=== PATIENT | male | born 1955 | race Caucasian/White ===

== ENCOUNTER 2019-08-25 06:56 | Day surgery (SDC) | payer MEDICARE ==
[~2019-08-25] VITALS: Ht 195 cm; Wt 94.3 kg
--- NOTE | 2019-08-25 08:31 | NUR ---
Ambulatory in Day Surgery History, Chart, Medications and Allergies reviewed before start of procedure.Patient confirms NPO status and agrees with scheduled surgery. Patient reports completing Chlorhexadine shower X2 prior to admission to hospital.
--- NOTE | 2019-08-25 12:00 | NUR ---
PATIENT AND SPOUSE PROVIDED DISCHARGE INFO REGARDING FOLLOW UP PLANS, WOUND CARE, MEDICATION INFO, AND REASONS TO RETURN TO THE HOSPITAL. VERBALIZED UNDERSTANDING. NO SIGNS OF ACUTE DISTRESS, NO NEW DISCHARGE NOTED, VITAL SIGNS STABLE. PATIENT TOLERATED PO INTAKE. [facility]IST AGREED TO TAKE PATIENT TO HOME.
== END 2019-08-25 23:03 | disposition home or self-care (01) ==
LOC: ORSCMMR 06:56
PROVIDERS: Podiatrist Foot & Ankle Surgery
PROC: 0SRQ0JZ Replacement of Left Toe Phalangeal Joint with Synthetic Substitute, Open Approach (ICD-10-PCS; principal; 2019-08-25 08:15)
PROC: 0QSP04Z Reposition Left Metatarsal with Internal Fixation Device, Open Approach (ICD-10-PCS; principal; 2019-08-25 08:15)
PROC: 0SQN0ZZ Repair Left Metatarsal-Phalangeal Joint, Open Approach (ICD-10-PCS; principal; 2019-08-25 08:15)
DX: M20.42 Other hammer toe(s) (acquired), left foot (principal); M21.612 Bunion of left foot; S93.145A Subluxation of metatarsophalangeal joint of left lesser toe(s), initial encounter
CPT/HCPCS: C1713; C1769; J0690; J1100; J1885; J2250; J2405; J2704; J3010; J7120

== ENCOUNTER 2021-01-13 07:50 | Day surgery (SDC) | payer MEDICARE ==
[~2021-01-13] VITALS: Ht 193 cm; Wt 94.6 kg
== END 2021-01-13 09:59 | disposition home or self-care (01) ==
LOC: ORSCSDS 07:50
PROVIDERS: Internal Medicine Gastroenterology
PROC: 0DBH8ZX Excision of Cecum, Via Natural or Artificial Opening Endoscopic, Diagnostic (ICD-10-PCS; principal; 2021-01-13 09:00)
DX: Z12.11 Encounter for screening for malignant neoplasm of colon (principal); D12.0 Benign neoplasm of cecum; K57.30 Diverticulosis of large intestine without perforation or abscess without bleeding; Z86.010 Personal history of colon polyps; Z83.71 Family history of colonic polyps
CPT/HCPCS: 88305; J2704; J7120